=== PATIENT | male | born 1985 | race Caucasian/White ===

== ENCOUNTER 2018-01-09 13:48 | Emergency (ER) | payer SELFPAY ==
[~2018-01-09] VITALS: Ht 172.7 cm; Wt 93.0 kg
[2018-01-09 13:57] VITALS: Ht 172.7 cm; Wt 93.0 kg
[2018-01-09 15:24] VITALS: BP 137/82
== END 2018-01-09 15:24 | disposition home or self-care (01) ==
LOC: ED 13:48
DX: G44.209 Tension-type headache, unspecified, not intractable (principal)
CPT/HCPCS: J1885